=== PATIENT | female | born 1975 | race Caucasian/White ===

== ENCOUNTER → 2016-11-10 | Outpatient (CLI) | payer BC, OTHER ==
[~2016-11-10] MED LIST: GLUCOPHAGE XR500 MG PO; LORTAB 2.5/5001 TAB PO; MUCINEX DM1 TAB.SR . PO; NASONEX17 GM; VITAMIN D 4001 UDTAB PO; ZITHROMAX PO
--- NOTE | ~2016-11-10 | US24 ---
[facility] A Service of [facility] RADIOLOGY TEXT RESULTS PATIENT: YAKOV LI LOCATION: [facility] : 77 UNIT #: [id number] AGE: [address]: Nicolás Tracey MD SEX: F ORDER DR: [id number] [place], [place] [address] [id number] O MR#: [id number] Acc #: [id number] NAME: YAKOV LI : 1975 SEX: F STUDY DATE/TIME: 11/10/2016 15:35 UNIT: [facility] ROOM: STUDY DESCRIPTION: US Breast Unilateral Attending Physician: Nicolás Tracey M.D. Ordering Physician: Nicolás Tracey M.D. Primary Care Physician: Nicolás Tracey M.D. MEDICAL IMAGING REPORT This report is preliminary unless electronic signature is present EXAM Left breast ultrasound. HISTORY Left breast pain. FINDINGS Macias-scale and color Doppler ultrasound of the left breast was performed. Please refer to the diagnostic mammogram report for details on the left breast ultrasound. IMPRESSION Benign left breast ultrasound. Patients over the age of 40 are entered into a reminder system with target due date for the next mammogram. A result letter will also be sent to the patient. BIRADS: 2 Benign findings. Dictated by... Leon You M.D. THIS IS AN ELECTRONICALLY VERIFIED REPORT Leon You M.D. at 11/13/2016 3:03 PM Onofre TD: 11/10/2016 22:13 JOB #: [id number] [facility] A Service [facility] RADIOLOGY TEXT RESULTS PATIENT: YAKOV LI LOCATION: [facility] : 77 UNIT #: [id number] AGE: [address]: Nicolás Tracey MD SEX: F ORDER DR: MEDICAL IMAGING REPORT Page 1 of 1 COPY
--- NOTE | ~2016-11-10 | MY26 ---
[facility] A Service of [facility] RADIOLOGY TEXT RESULTS PATIENT: YAKOV LI LOCATION: [facility] : 77 UNIT #: [id number] AGE: [address]: Nicolás Tracey MD SEX: F ORDER DR: [id number] [place], [place] [address] [id number] O MR#: [id number] Acc #: [id number] NAME: YAKOV LI : 1975 SEX: F STUDY DATE/TIME: 11/10/2016 15:02 UNIT: [facility] ROOM: STUDY DESCRIPTION: [facility] DIAGNOSTIC W/ CAD BILAT Attending Physician: Nicolás Tarcey M.D. Ordering Physician: Nicolás Tracey M.D. Primary Care Physician: Nicolás Tracey M.D. MEDICAL IMAGING REPORT This report is preliminary unless electronic signature is present EXAM 1. Bilateral digital diagnostic mammogram with CAD. 2. Left diagnostic breast ultrasound. CLINICAL HISTORY 41-year-old female with painful left breast 1 year status post breast Augmentation. FINDINGS BILATERAL MAMMOGRAM: CC and MLO views of both breasts were obtained as well as implant displaced CC and MLO views. The background breast parenchyma consists of heterogenously dense tissue. There is no suspicious mass, microcalcification, architectural distortion. Patient has bilateral subpectoral saline implants. Implants are normal in appearance. This is considered the patient's baseline mammogram. LEFT BREAST ULTRASOUND: Macias-scale and color Doppler ultrasound of the left breast was performed. No suspicious findings are identified. The left breast implant appears intact. IMPRESSION 1. Benign mammogram and left breast ultrasound. 2. BIRADS 2. RECOMMENDATIONS: Annual screening mammogram. Patients over the age of 40 are entered into a reminder system with target due date for the next mammogram. A result letter will also be sent to the patient. [facility] A Service [facility] RADIOLOGY TEXT RESULTS PATIENT: YAKOV LI LOCATION: [facility] : 77 UNIT #: [id number] AGE: [address]: Nicolás Tracey MD SEX: F ORDER DR: BIRADS: 2 Benign findings. Dictated by... Leon You M.D. THIS IS AN ELECTRONICALLY VERIFIED REPORT Leon You M.D. at 11/13/2016 3:01 PM BRAXTON/kelly TD: 11/10/2016 22:08 JOB #: [id number] MEDICAL IMAGING REPORT Page 1 of 1 COPY
== END | disposition home or self-care (01) ==
LOC: CMAM 11-02 14:30
DX: N64.4 Mastodynia (principal)
CPT/HCPCS: 76641; G0204